=== PATIENT | male | born 1965 | race African-American/Black ===

== ENCOUNTER 2016-11-20 18:18 | Emergency (ER) | payer MEDICAID ==
[~2016-11-20] VITALS: Ht 188 cm; Wt 81.6 kg
--- NOTE | 2016-11-20 18:37 | NUR ---
at the bedside.
--- NOTE | 2016-11-20 18:43 | NUR ---
mse completyed, pt d/c'd home , aci given. pt AMBULATED W/O DIFF/TOOK ALL BELONGINGS.
[2016-11-20 18:45] VITALS: BP 152/89
== END 2016-11-20 18:46 | disposition home or self-care (01) ==
LOC: ER 18:21
DX: R21 Rash and other nonspecific skin eruption (principal)
CPT/HCPCS: A4663

== ENCOUNTER 2016-12-20 15:56 | Emergency (ER) | payer MEDICAID ==
[~2016-12-20] VITALS: Ht 188 cm; Wt 81.6 kg
--- NOTE | 2016-12-20 17:55 | NUR ---
Pt resting in bed, awaitig to be seen by .
--- NOTE | 2016-12-20 18:18 | NUR ---
Dr Siddiqi at the bedside for eval and exam.
[2016-12-20 18:24] LABS: *BILIRUBIN,URIN NEGATIVE (NEGATIVE); *BLOOD, URINE Trace-intact (NEGATIVE); *CLARITY,URINE SLIGHTLY CLOUDY (CLEAR); *COLOR,URINE YELLOW (YELLOW); *KETONES,URINE NEGATIVE (NEGATIVE); *PROTEIN,URINE TRACE (NEGATIVE); LEUKOCYTE ESTERASE ,URINE NEGATIVE (NEGATIVE); NITRITE, URINE NEGATIVE (NEGATIVE); PH,URINE 6.5 (5.0-8.0); UGLUCOSE TRACE (NEGATIVE)
[2016-12-20 18:33] LABS: BASOPHILS % (AUTO) 0.2 % (0.0-2.0); EOSINOPHILS # (AUTO) 0.1 K/uL (0.0-0.7); EOSINOPHILS % (AUTO) 0.8 % (0.0-7.0); HEMATOCRIT 44.6 % (40-50); LYMPHOCYTES # (AUTO) 1.4 K/UL (0.8-4.8); LYMPHOCYTES % (AUTO) 14.8 % (20.5-51.5); MEAN CORPUSCULAR HEMOGLOBIN 31.6 UUG (27.0-31.0); MEAN CORPUSCULAR HGB CONC 34 g/dL (32.0-37.0); MEAN CORPUSCULAR VOLUME 94.2 FL (82.0-92.0); MONOCYTES # (AUTO) 0.5 K/UL (0.1-1.30); MONOCYTES % (AUTO) 4.7 % (0.0-11.0); NEUTROPHILS # (AUTO) 7.6 K/UL (1.8-8.9); NEUTROPHILS % (AUTO) 79.5 % (38.5-71.5); PLATELET COUNT (AUTO) 202 K/UL (150-450); RED BLOOD CELL COUNT(AUTO) 4.73 MIL/UL (4.7-6.1); WHITE BLOOD COUNT (AUTO) 9.6 K/UL (4.0-11.2)
[2016-12-20 18:33] LABS: BACTERIA,URINE NONE SEEN /HPF (NONE SEEN); RBC,URINE 0-3 /HPF (0-3); SQUAMOUS EPITHELIAL CELL,UR NONE SEEN /HPF (NONE SEEN); WBC,URINE 0-3 /HPF (0-3)
--- NOTE | 2016-12-20 18:35 | NUR ---
PT BACK FROM CT.
[2016-12-20 18:41] LABS: BILIRUBIN,DIRECT 0.1 mg/dL (0.0-0.2); BILIRUBIN,TOTAL 0.5 mg/dL (0.2-1.0); CREATININE 1.4 mg/dL (0.6-1.3); POTASSIUM 3.6 mmol/L (3.5-5.1); TOTAL PROTEIN, SERUM 8.3 g/dL (6.4-8.2)
[2016-12-20 19:07] VITALS: BP 148/99
--- NOTE | 2016-12-20 19:14 | NUR ---
Patient discharged to home in stable conditon. Written and verbal after care instructions given. Patient verbalizes understanding of instructions.
== END 2016-12-20 19:14 | disposition home or self-care (01) ==
LOC: ER 15:56
DX: R80.9 Proteinuria, unspecified (principal); R81 Glycosuria
CPT/HCPCS: 36415; 70030-TC; 83690; 84153; 85025; 85730; 87086; A4663

== ENCOUNTER 2017-03-05 22:03 | Emergency (ER) | payer SELFPAY ==
[~2017-03-05] VITALS: Ht 188 cm; Wt 81.6 kg
--- NOTE | 2017-03-05 22:35 | NUR ---
ASKED PT FOR NAME OF BP MED AND HE TOLD ME WE HAVE IT IN OUR RECORDS.HAS NOT HAD ANY [facility] MED IN ABOUT 2 WEEKS
--- NOTE | 2017-03-05 22:55 | NUR ---
Patient discharged to home in stable conditon. Written and verbal after care instructions given. Patient verbalizes understanding of instructions.
== END 2017-03-05 22:57 | disposition home or self-care (01) ==
LOC: ER 22:05
DX: Z76.0 Encounter for issue of repeat prescription (principal); M54.2 Cervicalgia; I10 Essential (primary) hypertension; Z59.0 Homelessness
CPT/HCPCS: 99283; A4663

== ENCOUNTER 2017-04-19 00:03 | Emergency (ER) | payer SELFPAY ==
[~2017-04-19] VITALS: Ht 188 cm; Wt 81.6 kg
--- NOTE | 2017-04-19 01:42 | NUR ---
Patient discharged to home in stable conditon. Written and verbal after care instructions given. Patient verbalizes understanding of instructions.
== END 2017-04-19 01:43 | disposition home or self-care (01) ==
LOC: ER 00:06
DX: Z76.0 Encounter for issue of repeat prescription (principal); J20.9 Acute bronchitis, unspecified; Z59.0 Homelessness
CPT/HCPCS: A4663

== ENCOUNTER 2018-12-04 20:21 | Emergency (ER) | payer MEDICAID ==
[~2018-12-04] VITALS: Ht 188 cm; Wt 81.6 kg
--- NOTE | 2018-12-04 22:00 | NUR ---
PATIENT WALKED INTO ER REQUESTING PCXR TO R/O TB. PATIENT STATES HE GOT A NEW JOB WHICH REQUIRE CXR TO R/O TB. NO DISTRESS NOTED
--- NOTE | 2018-12-04 23:20 | NUR ---
Patient discharged to home in stable conditon. Written and verbal after care instructions given. Patient verbalizes understanding of instructions. WALKED OUT OF ER WITH NO DISTRESS NOTED
== END 2018-12-04 23:30 | disposition home or self-care (01) ==
LOC: ER 20:21
DX: Z00.00 Encounter for general adult medical examination without abnormal findings (principal); Z59.0 Homelessness
CPT/HCPCS: 71045; A4663

== ENCOUNTER 2022-06-24 16:38 | Emergency (ER) | payer MEDICAID, OTHER ==
--- NOTE | 2022-06-24 17:05 | NUR ---
Pt ambulatory to room 5b, pt is agitated and refusing triage/vital signs. Security called and are at bedside.
--- NOTE | 2022-06-24 17:10 | NUR ---
Pt was seen and examined by .
[2022-06-24] MEDS ORDERED: AMLO10TA59 PO (17:14)
--- NOTE | 2022-06-24 17:30 | NUR ---
BP 142/93 (taken by GIN Husain). Pt d/c per .
== END 2022-06-24 17:36 | disposition home or self-care (01) ==
LOC: ER 16:38
DX: I10 Essential (primary) hypertension (principal); Z76.0 Encounter for issue of repeat prescription; Z83.3 Family history of diabetes mellitus; Z59.02 Unsheltered homelessness
CPT/HCPCS: A4663